=== PATIENT | female | born 1955 | race Caucasian/White ===

== ENCOUNTER → 2016-10-08 | Outpatient (CLI) | payer BC ==
--- NOTE | 2016-10-08 15:56 | CR ---
EXAMINATION: Two-view chest (PA and Lateral views). HISTORY: COPD. FINDINGS: The trachea is midline. The cardiomediastinal silhouette is within normal limits. No pulmonary infil trates, effusions or pneumothorax. Mild interstitial prominence and hyperinflation. Osseous structures appear unremarkable. IMPRESSION: No acute cardiopulmonary process.
== END | disposition home or self-care (01) ==
LOC: MW.CHFP 15:28
PROVIDERS: ATTEND Physician Assistant
DX: J44.9 Chronic obstructive pulmonary disease, unspecified (principal)
CPT/HCPCS: 71020; 71020-26

== ENCOUNTER 2017-05-02 14:28 | Emergency (ER) | payer BC ==
--- NOTE | 2017-05-02 14:53 | EDM.PDOC ---
ED HPI GENERAL MEDICAL PROBLEM - General Chief Complaint: Laceration Stated Complaint: SMASHED FINGER ON RT HAND IN CAR DOOR Time Seen by Provider: 05/02/17 14:52 Source of Information: Reports: Patient - History of Present Illness INITIAL COMMENTS - FREE TEXT/NARRATIVE: HISTORY AND PHYSICAL: History of present illness: []Patient and car door 2.5 cm laceration associated moderate swelling no fever nausea Review of systems: As per history of present illness and below otherwise all systems reviewed and negative. Past medical history: As per history of present illness and as reviewed below otherwise noncontributory. Surgical history: As per history of present illness and as reviewed below otherwise noncontributory. Social history: No reported history of drug or alcohol abuse. Family history: As per history of present illness and as reviewed below otherwise noncontributory. Physical exam: HEENT: Atraumatic, normocephalic, pupils reactive, negative for conjunctival pallor or scleral icterus, mucous membranes moist, throat clear, neck supple, nontender, trachea midline. Lungs: Clear to auscultation, breath sounds equal bilaterally, chest nontender. Heart: S1S2, regular, negative for clicks, rubs, or JVD. Abdomen: Soft, nondistended, nontender. Negative for masses or hepatosplenomegaly. Negative for costovertebral tenderness. Pelvis: Stable nontender. Genitourinary: Deferred. Rectal: Deferred. Extremities: Atraumatic, negative for cords or calf pain. Neurovascular unremarkable. Neuro: Awake, alert, oriented. Cranial nerves II through XII unremarkable. Cerebellum unremarkable. Motor and sensory unremarkable throughout. Exam nonfocal. Diagnostics: []X-ray left second digit Therapeutics: []Lidocaine digital block #3 5-0 Prolene sutures interrupted Wound cleansed and explored no complication or complaint Standard wound care instructions Splint bacitracin Telfa tube dressing Impression: []Laceration right index finger 1.5 cm Definitive disposition and diagnosis as appropriate pending reevaluation and review of above. right index finger Pain Score (Numeric/FACES): 3 - Related Data Allergies Allergy/AdvReac Type Severity Reaction Status Date / Time aspirin Allergy unknown Verified 10/31/13 15:56 Sulfa (Sulfonamide Allergy Anaphylactic Verified 05/02/17 14:54 Antibiotics) Shock Home Meds: Home Meds Budesonide/Formoterol [Symbicort 160-4.5 Mcg Inhaler] 1 puff INH BID 08/22/14 [ History] Fluticasone Propionate [Flonase] 1 spray INH DAILY 08/22/14 [History] Social & Family History - Tobacco Use Smoking Status *Q: Never Smoker Second Hand Smoke Exposure: No - Alcohol Use Days Per Week of Alcohol Use: 0 - Recreational Drug Use Recreational Drug Use: No ED ROS GENERAL - Review of Systems Review Of Systems: See Below ED EXAM, SKIN/RASH Exam: See Below Course - Vital Signs Last Recorded V/S: Last Vital Signs Temp 36.4 C 05/02/17 14:28 Pulse 65 05/02/17 14:28 Resp 18 05/02/17 14:28 BP 161/82 H 05/02/17 14:28 Pulse Ox 98 05/02/17 14:28 - Orders/Labs/Meds Orders: Active Orders 24 hr Category Date Time Status Fingers Second Digit Rt F6 [CR] Stat Exams 05/02/17 14:51 Taken Meds: Medications Discontinued Medications Generic Name Dose Route Start Last Admin Trade Name Bayron PRN Reason Stop Dose Admin Lidocaine HCl 20 ml 05/02/17 15:31 05/02/17 15:51 Xylocaine 1% INJECT 05/02/17 15:32 20 ml ONETIME ONE Administration Departure - Departure Time of Disposition: 16:22 Disposition: Home, Self-Care 01 Condition: Good Clinical Impression: Laceration - Discharge Information Referrals: Anibal Foote MD [Primary Care Provider] - Forms: ED Department Discharge Additional Instructions: Standard wound care instructions Keep wound clean clean and dry for 48 hours Splint for protection and healing Bacitracin Telfa tube dressing The bandaging on for 48 hours plus of bleeds through her becomes soiled Continue splint as above Sutures out in 10 days Return if red warm or pus drainage should it develop The following information is given to patients seen in the emergency department who are being discharged to home. This information is to outline your options for follow-up care. We provide all patients seen in our emergency department with a follow-up referral. The need for follow-up, as well as the timing and circumstances, are variable depending upon the specifics of your emergency department visit. If you don't have a primary care physician on staff, we will provide you with a referral. We always advise you to contact your personal physician following an emergency department visit to inform them of the circumstance of the visit and for follow-up with them and/or the need for any referrals to a consulting specialist. The emergency department will also refer you to a specialist when appropriate. This referral assures that you have the opportunity for follow-up care with a specialist. All of these measure are taken in an effort to provide you with optimal care, which includes your follow-up. Under all circumstances we always encourage you to contact your private physician who remains a resource for coordinating your care. When calling for follow-up care, please make the office aware that this follow-up is from your recent emergency room visit. If for any reason you are refused follow-up, please contact the [facility] emergency department at and asked to speak to the emergency department charge nurse. - My Orders Last 24 Hours: My Active Orders 05/02/17 14:51 Fingers Second Digit Rt F6 [CR] Stat - Assessment/Plan Last 24 Hours: My Active Orders 05/02/17 14:51 Fingers Second Digit Rt F6 [CR] Stat
[2017-05-02 14:58] VITALS: BP 161/82
[2017-05-02] MEDS ORDERED: Lidocaine 1% 20 ML MDV INJECT ONE (15:31)
[2017-05-02] MEDS ORDERED: Bacitracin Oint 1 GM U/D Packet TOP ONE (16:35)
--- NOTE | 2017-05-04 11:21 | CR ---
EXAM DATE: 05/02/17 PATIENT'S AGE: 61 Patient: JOSÉ MAUNEL SIBLEY Facility: [place], [place] Site Site : 1955 Study: XRay Extremity Right FINGER [id number]/14/2017 3:17:25 PM Ordering Physician: SIRIA DAVID MD Final Report: INDICATION: Pain. TECHNIQUE: Three views of the right 2nd finger. COMPARISON: None. IMPRESSION: No fracture, subluxation or dislocation. Soft tissue swelling is seen about the 2nd DIP joint, particularly dorsally. 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 Dictated by Wesly White MD @ 05/02/2017 3:56:49 PM Dictated by: Wesly White MD @ 05/02/2017 15:56:55 (Electronic Signature) Report Signed by Proxy. MTDNicole
== END 2017-05-02 17:01 | disposition home or self-care (01) ==
LOC: MW.ED 14:28
DX: S61.210A Laceration without foreign body of right index finger without damage to nail, initial encounter (principal); Z79.899 Other long term (current) drug therapy; Z88.2 Allergy status to sulfonamides; Z88.6 Allergy status to analgesic agent; W23.0XXA Caught, crushed, jammed, or pinched between moving objects, initial encounter
CPT/HCPCS: 12001; 73140-26-F6; 73140-F6; 99282; 99283

== ENCOUNTER 2017-07-15 09:26 | Emergency (ER) | payer BC ==
[2017-07-15] MEDS ORDERED: Albuterol/Ipratropium 3.0-0.5 MG/3 ML Neb Soln NEB ONE (09:29)
[2017-07-15] MEDS ORDERED: methylPREDNISolone Sodium Succinate 125 MG/2 ML SDV IVPUSH ONE (09:29)
[2017-07-15] MEDS ORDERED: Sodium Chloride 0.9% 1,000 ML IV SCH (09:30)
[2017-07-15] MEDS ORDERED: Albuterol/Ipratropium 3.0-0.5 MG/3 ML Neb Soln ONE (09:34)
--- NOTE | 2017-07-15 09:34 | EDM.PDOC ---
ED HPI GENERAL MEDICAL PROBLEM - General Stated Complaint: ASTHMA ISSUES Time Seen by Provider: 07/15/17 09:28 - History of Present Illness INITIAL COMMENTS - FREE TEXT/NARRATIVE: HISTORY AND PHYSICAL: History of present illness: Patient is a 61-year-old white female history of asthma who is been noncompliant due to resource challenges soup presents from clinic with shortness of breath and wheezing worse over last 24-48 hours she denies fever chills nausea vomiting denies chest pain or other concern Review of systems: As per history of present illness and below otherwise all systems reviewed and negative. Past medical history: As per history of present illness and as reviewed below otherwise noncontributory. Surgical history: As per history of present illness and as reviewed below otherwise noncontributory. Social history: No reported history of drug or alcohol abuse. Family history: As per history of present illness and as reviewed below otherwise noncontributory. Physical exam: HEENT: Atraumatic, normocephalic, pupils reactive, negative for conjunctival pallor or scleral icterus, mucous membranes moist, throat clear, neck supple, nontender, trachea midline. Lungs: Diminished with an extra wheezing diffusely, breath sounds equal bilaterally, chest nontender. Heart: S1S2, regular, negative for clicks, rubs, or JVD. Abdomen: Soft, nondistended, nontender. Negative for masses or hepatosplenomegaly. Negative for costovertebral tenderness. Pelvis: Stable nontender. Genitourinary: Deferred. Rectal: Deferred. Extremities: Atraumatic, negative for cords or calf pain. Neurovascular unremarkable. Neuro: Awake, alert, oriented. Cranial nerves II through XII unremarkable. Cerebellum unremarkable. Motor and sensory unremarkable throughout. Exam nonfocal. Diagnostics: CBC CMP PT/INR troponin chest x-ray EKG influenza screen Therapeutics: Saline at 125 mL an hour Solu-Medrol 125 mg IV albuterol ipratropium nebulizer Impression: #1 acute asthmatic exacerbation Definitive disposition and diagnosis as appropriate pending reevaluation and review of above. - Related Data Allergies Allergy/AdvReac Type Severity Reaction Status Date / Time aspirin Allergy unknown Verified 07/15/17 09:32 Sulfa (Sulfonamide Allergy Anaphylactic Verified 07/15/17 09:32 Antibiotics) Shock Home Meds: Home Meds Budesonide/Formoterol [Symbicort 160-4.5 Mcg Inhaler] 1 puff INH BID 08/22/14 [ History] Albuterol Sulfate [Proair Hfa] 90 mcg INH ASDIRECTED PRN 07/15/17 [History] Past Medical History - Past Health History Medical/Surgical History: Denies Medical/Surgical History HEENT History: Reports: Impaired Vision Respiratory History: Reports: Asthma, COPD Hematologic History: Reports: Bleeding Disorder Social & Family History - Family History Family Medical History: Noncontributory - Tobacco Use Smoking Status *Q: Never Smoker Second Hand Smoke Exposure: No - Alcohol Use Days Per Week of Alcohol Use: 0 - Recreational Drug Use Recreational Drug Use: No ED ROS GENERAL - Review of Systems Review Of Systems: ROS reveals no pertinent complaints other than HPI. ED EXAM, GENERAL - Physical Exam Exam: See Below (See dictation) Course - Vital Signs Last Recorded V/S: Last Vital Signs Temp 36.7 C 07/15/17 09:34 Pulse 81 07/15/17 09:34 Resp 27 H 07/15/17 09:49 BP 150/84 H 07/15/17 09:49 Pulse Ox 94 L 07/15/17 09:49 - Orders/Labs/Meds Orders: Active Orders 24 hr Category Date Time Status Cardiac Monitoring [RC] . DIRECTED Care 07/15/17 09:29 Active EKG Documentation Completion [RC] STAT Care 07/15/17 09:29 Active Oxygen Therapy, ED [RC] ASDIRECTED Care 07/15/17 09:29 Active Pulse Oximetry [RC] ASDIRECTED Care 07/15/17 09:29 Active RT Aerosol Therapy [RC] ASDIRECTED Care 07/15/17 09:30 Active Chest 1V Frontal [CR] Stat Exams 07/15/17 09:30 Taken INFLUENZA A+B AG SCREEN [RM] Stat Lab 07/15/17 10:03 Ordered Sodium Chloride 0.9% [Normal Saline] 1,000 ml Med 07/15/17 09:30 Active IV STAT Medication Orders Sodium Chloride (Normal Saline) 1,000 mls @ 125 mls/hr IV STAT LIANNE Last Admin: 07/15/17 09:45 Dose: 125 mls/hr Labs: Laboratory Tests 07/15/17 07/15/17 07/15/17 Range/Units 09:40 09:40 09:40 WBC 6.27 (4.0-11.0) K/uL RBC 4.60 (4.30-5.90) M/uL Hgb 14.3 (12.0-16.0) g/dL Hct 43.9 (36.0-46.0) % MCV 95.4 (80.0-98.0) fL MCH 31.1 (27.0-32.0) pg MCHC 32.6 (31.0-37.0) g/dL RDW Std Deviation 47.6 (28.0-62.0) fl RDW Coeff of Angelica 14 (11.0-15.0) % Plt Count 224 (150-400) K/uL MPV 10.40 (7.40-12.00) fL Neut % (Auto) 54.6 (48.0-80.0) % Lymph % (Auto) 26.6 (16.0-40.0) % Brooke % (Auto) 8.3 (0.0-15.0) % Eos % (Auto) 9.9 H (0.0-7.0) % Baso % (Auto) 0.6 (0.0-1.5) % Neut # (Auto) 3.4 (1.4-5.7) K/uL Lymph # (Auto) 1.7 (0.6-2.4) K/uL Brooke # (Auto) 0.5 (0.0-0.8) K/uL Eos # (Auto) 0.6 (0.0-0.7) K/uL Baso # (Auto) 0.0 (0.0-0.1) K/uL Sodium 139 (136-146) mmol/L Potassium 3.7 (3.5-5.1) mmol/L Chloride 106 (98-110) mmol/L Carbon Dioxide 20 L (21-31) mmol/L BUN 21 (6.0-23.0) mg/dL Creatinine 0.8 (0.6-1.5) mg/dL Est Cr Clr Drug Dosing TNP Estimated GFR (MDRD) > 60.0 ml/min Glucose 116 H (60-110) mg/dL Calcium 10.1 (8.8-10.8) mg/dL Total Bilirubin 0.7 (0.1-1.5) mg/dL AST 26 (5-40) IU/L ALT 18 (8-54) IU/L Alkaline Phosphatase 68 (40-150) Troponin I < 0.10 (0.0-0.29) NG/ML B-Natriuretic Peptide 71 (<100) PG/ML Total Protein 7.4 (6.0-8.0) g/dL Albumin 4.4 (3.5-5.0) g/dL Globulin 3.0 (2.0-3.5) g/dL Albumin/Globulin Ratio 1.5 (1.3-2.8) Meds: Medications Generic Name Dose Route Start Last Admin Trade Name Freq PRN Reason Stop Dose Admin Sodium Chloride 1,000 mls @ 125 mls/hr 07/15/17 09:30 07/15/17 09:45 Normal Saline IV 125 mls/hr STAT LIANNE Administration Discontinued Medications Generic Name Dose Route Start Last Admin Trade Name Freq PRN Reason Stop Dose Admin Albuterol/Ipratropium 3 ml 07/15/17 09:29 07/15/17 09:30 Duoneb 3.0-0.5 Mg/3 Ml NEB 07/15/17 09:30 3 ml ONETIME ONE Administration Albuterol/Ipratropium Confirm 07/15/17 09:34 07/15/17 09:53 Duoneb 3.0-0.5 Mg/3 Ml Administered 07/15/17 09:35 Not Given Dose 3 ml .ROUTE .STK-MED ONE Methylprednisolone Sodium Succinate 125 mg 07/15/17 09:29 07/15/17 09:54 Solu-Medrol IVPUSH 07/15/17 09:30 125 mg ONETIME ONE Administration Methylprednisolone Sodium Succinate Confirm 07/15/17 09:41 07/15/17 09:53 Solu-Medrol Administered 07/15/17 09:42 Not Given Dose 125 mg .ROUTE .STK-MED ONE Departure - Departure Time of Disposition: 10:52 Disposition: Home, Self-Care 01 Condition: Good Clinical Impression: Exacerbation of asthma - Discharge Information Additional Instructions: The following information is given to patients seen in the emergency department who are being discharged to home. This information is to outline your options for follow-up care. We provide all patients seen in our emergency department with a follow-up referral. The need for follow-up, as well as the timing and circumstances, are variable depending upon the specifics of your emergency department visit. If you don't have a primary care physician on staff, we will provide you with a referral. We always advise you to contact your personal physician following an emergency department visit to inform them of the circumstance of the visit and for follow-up with them and/or the need for any referrals to a consulting specialist. The emergency department will also refer you to a specialist when appropriate. This referral assures that you have the opportunity for followup care with a specialist. All of these measure are taken in an effort to provide you with optimal care, which includes your followup. Under all circumstances we always encourage you to contact your private physician who remains a resource for coordinating your care. When calling for followup care, please make the office aware that this follow-up is from your recent emergency room visit. If for any reason you are refused follow-up, please contact the [facility] emergency department at and asked to speak to the emergency department charge nurse. Albuterol Advair Medrol as prescribed follow-up private medical doctor 1-2 days return as needed as discussed - My Orders Last 24 Hours: My Active Orders 07/15/17 09:29 Cardiac Monitoring [RC] . DIRECTED EKG Documentation Completion [RC] STAT Oxygen Therapy, ED [RC] ASDIRECTED Pulse Oximetry [RC] ASDIRECTED 07/15/17 09:30 RT Aerosol Therapy [RC] ASDIRECTED Chest 1V Frontal [CR] Stat Sodium Chloride 0.9% [Normal Saline] 1,000 ml IV STAT 07/15/17 10:03 INFLUENZA A+B AG SCREEN [RM] Stat - Assessment/Plan Last 24 Hours: My Active Orders 07/15/17 09:29 Cardiac Monitoring [RC] . DIRECTED EKG Documentation Completion [RC] STAT Oxygen Therapy, ED [RC] ASDIRECTED Pulse Oximetry [RC] ASDIRECTED 07/15/17 09:30 RT Aerosol Therapy [RC] ASDIRECTED Chest 1V Frontal [CR] Stat Sodium Chloride 0.9% [Normal Saline] 1,000 ml IV STAT 07/15/17 10:03 INFLUENZA A+B AG SCREEN [RM] Stat
[2017-07-15] MEDS ORDERED: methylPREDNISolone Sodium Succinate 125 MG/2 ML SDV ONE (09:41)
[2017-07-15 10:13] LABS: CHLORIDE,CL 106 mmol/L (98-110); SODIUM,NA 139 mmol/L (136-146)
--- NOTE | 2017-07-15 14:16 | CR ---
EXAM DATE: 07/15/17 PATIENT'S AGE: 61 Patient: JOSÉ MANUEL SIBLEY Facility: [place], [place] Site . Site : 1955 Study: XRay Chest [id number]/27/2017 10:02:16 AM Ordering Physician: Doctor Vick Final Report: INDICATION: Chest pain and shortness of breath TECHNIQUE: Chest 1 views COMPARISON: October 08, 2016 FINDINGS: Cardiovascular and mediastinum: Heart size and vasculature are normal in caliber and appearance. Lungs and pleural spaces: Lungs are clear. No sign of infiltrate or mass. No sign of pleural effusion. No pneumothorax. Bones and soft tissues: No significant findings. IMPRESSION: No acute findings and no significant changes from the prior exam. Dictated by Tucker Liu MD @ 07/15/2017 10:13:12 AM Dictated by: Tucker Liu MD @ 07/15/2017 10:13:17 (Electronic Signature) Report Signed by Proxy. JOSÉ MIGUEL
[2017-07-15 19:29] VITALS: BP 143/91
== END 2017-07-15 11:24 | disposition home or self-care (01) ==
LOC: MW.ED 09:26
DX: J45.901 Unspecified asthma with (acute) exacerbation (principal); Z88.6 Allergy status to analgesic agent; Z88.2 Allergy status to sulfonamides
CPT/HCPCS: 36415; 71010; 80053; 83880; 84484; 85025; 87804; 93005; 99285; J2930; J7040; 99283

== ENCOUNTER 2018-11-06 23:06 | Emergency (ER) | payer BC ==
[2018-11-06] MEDS ORDERED: Bupivacaine 0.25% 10 ML SDV ONE (23:34)
--- NOTE | 2018-11-06 23:35 | EDM.PDOC ---
ED HPI GENERAL MEDICAL PROBLEM - General Chief Complaint: Laceration Stated Complaint: PT CUT LT INDEX FINGER Time Seen by Provider: 11/06/18 23:32 - History of Present Illness INITIAL COMMENTS - FREE TEXT/NARRATIVE: HISTORY AND PHYSICAL: History of present illness: Patient's a 63-year-old white female presents with a concern of injury to the second digit of the left hand that occurred when she is working on a table saw she is up-to-date on her tetanus she denies any other trauma or concern. Review of systems: As per history of present illness and below otherwise all systems reviewed and negative. Past medical history: As per history of present illness and as reviewed below otherwise noncontributory. Surgical history: As per history of present illness and as reviewed below otherwise noncontributory. Social history: No reported history of drug or alcohol abuse. Family history: As per history of present illness and as reviewed below otherwise noncontributory. Physical exam: HEENT: Atraumatic, normocephalic, pupils reactive, negative for conjunctival pallor or scleral icterus, mucous membranes moist, throat clear, neck supple, nontender, trachea midline. Lungs: Clear to auscultation, breath sounds equal bilaterally, chest nontender. Heart: S1S2, regular, negative for clicks, rubs, or JVD. Abdomen: Soft, nondistended, nontender. Negative for masses or hepatosplenomegaly. Negative for costovertebral tenderness. Pelvis: Stable nontender. Genitourinary: Deferred. Rectal: Deferred. Extremities: Second digit of her left hand has a laceration with maceration distally in tissue avulsion also. Good hemostasis was no obvious tendon involvement there is nail and nailbed involvement. Neuro: Awake, alert, oriented. Cranial nerves II through XII unremarkable. Cerebellum unremarkable. Motor and sensory unremarkable throughout. Exam nonfocal. Diagnostics: X-ray left hand Therapeutics: Digital block with 0.25% Marcaine was accomplished wound was debrided wound approximation and [id number] suture for hemostasis was accomplished with 4- 0 absorbable suture Tubegauz bacitracin was applied Impression: #1 acute left hand injury (second digit) Definitive disposition and diagnosis as appropriate pending reevaluation and review of above. left index finger Pain Score (Numeric/FACES): 2 - Related Data Allergies Allergy/AdvReac Type Severity Reaction Status Date / Time aspirin Allergy unknown Verified 11/06/18 23:26 Sulfa (Sulfonamide Allergy Anaphylactic Verified 11/06/18 23:26 Antibiotics) Shock Home Meds: Home Meds Budesonide/Formoterol [Symbicort 160-4.5 Mcg Inhaler] 1 puff INH BID 08/22/14 [ History] Albuterol Sulfate [Proair Hfa] 90 mcg INH ASDIRECTED PRN 07/15/17 [History] Past Medical History - Past Health History Medical/Surgical History: Denies Medical/Surgical History HEENT History: Reports: Impaired Vision Respiratory History: Reports: Asthma, COPD Hematologic History: Reports: Bleeding Disorder - Past Surgical History HEENT Surgical History: Reports: Adenoidectomy, Naso-Sinus Surgery, Tonsillectomy Female Surgical History: Reports: Tubal Ligation Social & Family History - Family History Family Medical History: Noncontributory - Caffeine Use Caffeine Use: Reports: Coffee, Energy Drinks, Soda Caffeine Use Comment: 8 cups per day ED ROS GENERAL - Review of Systems Review Of Systems: ROS reveals no pertinent complaints other than HPI. ED EXAM, SKIN/RASH Exam: See Below (See dictation) Course - Vital Signs Last Recorded V/S: Last Vital Signs Temp 36.3 C 11/06/18 23:06 Pulse 77 11/06/18 23:06 Resp 18 11/06/18 23:06 BP 142/76 H 11/06/18 23:06 Pulse Ox 94 L 11/06/18 23:06 - Orders/Labs/Meds Orders: Active Orders 24 hr Category Date Time Status Fingers Second Digit Lt F1 [CR] Stat Exams 11/06/18 23:26 Taken Meds: Medications Discontinued Medications Generic Name Dose Route Start Last Admin Trade Name Freq PRN Reason Stop Dose Admin Bacitracin 1 dose 11/07/18 00:10 Bacitracin Oint 1 Gm TOP 11/07/18 00:11 ONETIME ONE Bupivacaine HCl Confirm 11/06/18 23:34 11/07/18 00:06 Sensorcaine-Mpf 0.25% Administered 11/06/18 23:35 10 ml Dose Administration 10 ml .ROUTE .STK-MED ONE Bupivacaine HCl 10 ml 11/06/18 23:38 11/07/18 00:06 Sensorcaine-Mpf 0.5% INJECT 11/06/18 23:39 Not Given ONETIME ONE Departure - Departure Time of Disposition: 00:30 Disposition: Home, Self-Care 01 Condition: Good Clinical Impression: Hand injury - Discharge Information Referrals: PCP,None [Primary Care Provider] - Forms: ED Department Discharge Additional Instructions: The following information is given to patients seen in the emergency department who are being discharged to home. This information is to outline your options for follow-up care. We provide all patients seen in our emergency department with a follow-up referral. The need for follow-up, as well as the timing and circumstances, are variable depending upon the specifics of your emergency department visit. If you don't have a primary care physician on staff, we will provide you with a referral. We always advise you to contact your personal physician following an emergency department visit to inform them of the circumstance of the visit and for follow-up with them and/or the need for any referrals to a consulting specialist. The emergency department will also refer you to a specialist when appropriate. This referral assures that you have the opportunity for followup care with a specialist. All of these measure are taken in an effort to provide you with optimal care, which includes your followup. Under all circumstances we always encourage you to contact your private physician who remains a resource for coordinating your care. When calling for followup care, please make the office aware that this follow-up is from your recent emergency room visit. If for any reason you are refused follow-up, please contact the [facility] emergency department at and asked to speak to the emergency department charge nurse. [facility] specialty clinic-Plastics [address] [place] [id number] Keflex is prescribed Motrin/Tylenol as directed follow-up hand surgery above return as needed as discussed dressing changes twice a day after 24 hours - My Orders Last 24 Hours: My Active Orders 11/06/18 23:26 Fingers Second Digit Lt F1 [CR] Stat - Assessment/Plan Last 24 Hours: My Active Orders 11/06/18 23:26 Fingers Second Digit Lt F1 [CR] Stat
[2018-11-06] MEDS ORDERED: Bupivacaine 0.5% 10 ML SDV INJECT ONE (23:38)
[2018-11-07] MEDS ORDERED: Bacitracin Oint 1 GM U/D Packet TOP ONE (00:10)
[2018-11-07 00:50] VITALS: BP 140/84
--- NOTE | 2018-11-08 14:28 | CR ---
EXAM DATE: 11/06/18 PATIENT'S AGE: 63 Patient: JOSÉ MANUEL SIBLEY Facility: [facility] Site . Site : 1955 Study: XRay-Extremity Left 2nd digit-11/07/2018 12:08:06 AM Ordering Physician: Matthew Nunes Final Report: INDICATION: Finger pain following accident with saw TECHNIQUE: Finger radiograph 3 views left 2nd COMPARISON: 01/29/2012 FINDINGS: Bone: No acute fractures or aggressive bone lesions are identified. Joint: The metacarpophalangeal and interphalangeal joints are normal in appearance. Soft tissue: Partial amputation of the soft tissues in the distal 2nd digit is noted. The punctate soft tissue densities adjacent to the amputation bed which may be due to foreign bodies. IMPRESSIONS: 1. No acute osseous injuries or abnormalities are noted. 2. Partial amputation of the soft tissues in the distal 2nd digit is noted. The punctate soft tissue densities adjacent to the amputation bed which may be due to foreign bodies. Dictated by Honorio Smith MD @ 11/07/2018 12:32:23 AM Dictated by: Honorio Smith MD @ 11/07/2018 00:32:29 Signed by: Honorio Smith MD @11/07/2018 12:32:29 AM (Electronic Signature) Report Signed by Proxy. JOSÉ MIGUEL
== END 2018-11-07 00:40 | disposition home or self-care (01) ==
LOC: MW.ED 23:06
DX: S61.311A Laceration without foreign body of left index finger with damage to nail, initial encounter (principal); J44.9 Chronic obstructive pulmonary disease, unspecified; Z88.2 Allergy status to sulfonamides; Z79.899 Other long term (current) drug therapy; W31.2XXA Contact with powered woodworking and forming machines, initial encounter; Z88.8 Allergy status to other drugs, medicaments and biological substances
CPT/HCPCS: 11760; 73140; 99283; J3490

== ENCOUNTER 2022-01-03 08:20 | Day surgery (SDC) | payer BC ==
[~2022-01-03 08:20] MED LIST: Bupivacaine 0.5% 10 ML SDV ONE; Lactated Ringers 1,000 ML IV SCH; Lidocaine 1% 20 ML MDV ONE
[2022-01-03] MEDS ORDERED: Lidocaine 2% 5 ML SDV ONE (08:27)
[2022-01-03] MEDS ORDERED: fentaNYL 100 MCG/2 ML SDV ONE (08:27)
[2022-01-03] MEDS ORDERED: Ondansetron 4 MG/2 ML SDV IVPUSH PRN (08:42)
[2022-01-03] MEDS ORDERED: fentaNYL 50 MCG/ML SDV IVPUSH PRN (08:42)
[2022-01-03] MEDS ORDERED: Albuterol 0.083% 2.5 MG/3 ML Neb Soln NEB PRN (08:42)
[2022-01-03] MEDS ORDERED: Naloxone 0.4 MG/ML SDV IVPUSH PRN (08:42)
[2022-01-03] MEDS ORDERED: HYDROmorphone 1 MG/ML Syringe IVPUSH PRN (08:42)
[2022-01-03] MEDS ORDERED: Metoclopramide 10 MG/2 ML SDV IVPUSH PRN (08:42)
[2022-01-03] MEDS ORDERED: Propofol 200 MG/20 ML SDV ONE (09:16)
[2022-01-03] MEDS ORDERED: Ondansetron 4 MG/2 ML SDV ONE (09:35)
[2022-01-03] MEDS ORDERED: Lactated Ringers 1,000 ML IV SCH (10:15)
[2022-01-03 10:46] VITALS: BP 135/75; PULSE 55
== END 2022-01-03 10:53 | disposition home or self-care (01) ==
LOC: MW.SDS 08:20
PROVIDERS: ATTEND Surgery
DX: L82.1 Other seborrheic keratosis (principal); D22.4 Melanocytic nevi of scalp and neck; D64.9 Anemia, unspecified; D69.9 Hemorrhagic condition, unspecified; J45.909 Unspecified asthma, uncomplicated; Z80.8 Family history of malignant neoplasm of other organs or systems; Z78.9 Other specified health status
CPT/HCPCS: 11424; J2405; J2704; J3490; J7120; 00300; J3010

== ENCOUNTER 2022-12-23 09:06 | Day surgery (SDC) | payer BC ==
[~2022-12-23 09:06] MED LIST changes: -Bupivacaine 0.5% 10 ML SDV ONE; -Lidocaine 1% 20 ML MDV ONE; +Sodium Chloride 0.9% 10 ML Syringe FLUSH PRN; +Sodium Chloride 0.9% 2.5 ML Syringe FLUSH PRN; +Sodium Chloride 0.9% 20 ML SDV IV PRN
[2022-12-23] MEDS ORDERED: Lidocaine 2% 5 ML SDV ONE (10:08)
[2022-12-23] MEDS ORDERED: Propofol 200 MG/20 ML SDV ONE (10:09)
[2022-12-23] MEDS ORDERED: cefOXitin 1 GM Vial ONE (11:03)
[2022-12-23 11:41] VITALS: BP 182/86; PULSE 51
== END 2022-12-23 12:05 | disposition home or self-care (01) ==
LOC: MW.SDS 09:06
PROVIDERS: ATTEND Surgery
DX: D12.3 Benign neoplasm of transverse colon (principal); D12.5 Benign neoplasm of sigmoid colon; R13.10 Dysphagia, unspecified; K29.50 Unspecified chronic gastritis without bleeding; B96.81 Helicobacter pylori [H. pylori] as the cause of diseases classified elsewhere; K22.89 Other specified disease of esophagus; J45.909 Unspecified asthma, uncomplicated; M85.80 Other specified disorders of bone density and structure, unspecified site; Z88.1 Allergy status to other antibiotic agents; Z88.2 Allergy status to sulfonamides; Z79.899 Other long term (current) drug therapy
CPT/HCPCS: J0694; J2704; J3490; J7120

== ENCOUNTER 2025-02-14 08:00 | Day surgery (SDC) | payer BC ==
[~2025-02-14 08:00] MED LIST changes: -Lactated Ringers 1,000 ML IV SCH; -Sodium Chloride 0.9% 20 ML SDV IV PRN
[2025-02-14] MEDS: Lactated Ringers 1,000 ML IV SCH (08:34)
[2025-02-14] MEDS ORDERED: propofoL 500 MG/50 ML 50 ML ONE (08:41)
[2025-02-14] MEDS ORDERED: dexmedeTOMIDine HCl 200 MCG/2 ML SDV ONE (08:41)
[2025-02-14 11:31] VITALS: BP 154/74; PULSE 53
== END 2025-02-14 10:50 | disposition home or self-care (01) ==
LOC: MW.SDS 08:00
PROVIDERS: ATTEND Surgery
DX: D12.3 Benign neoplasm of transverse colon (principal); K52.9 Noninfective gastroenteritis and colitis, unspecified; K57.30 Diverticulosis of large intestine without perforation or abscess without bleeding; Z88.8 Allergy status to other drugs, medicaments and biological substances; Z88.2 Allergy status to sulfonamides; Z79.899 Other long term (current) drug therapy; Z86.0100 Personal history of colon polyps, unspecified
CPT/HCPCS: 00813; J2704; J7120